=== PATIENT | male | born 1975 | race Caucasian/White ===

== ENCOUNTER 2019-05-11 08:46 | Inpatient (IN) ==
[2019-05-11] MEDS ORDERED: NITROGLYCERIN TOP ONE (09:04)
[2019-05-11] MEDS ORDERED: NS 1,000 ML IV ONE ×2 (09:04→10:06)
[2019-05-11] MEDS ORDERED: ZOFRAN IM ONE (09:04)
[2019-05-11] MEDS ORDERED: ASPIRIN PO ONE (09:04)
--- NOTE | 2019-05-11 09:30 | Diag Imaging Result Doc PS360 ---
EXAM: CHEST-1 VIEW 05/11/2019 HISTORY: chest pain TECHNIQUE: AP upright portable at 0919 COMMENT: The inspiration is less optimal than on 06/15/2018. Otherwise, considering differences in technique, there has been no significant change. IMPRESSION: Stable chest. Electronically signed by Dale Basilio 05/11/2019 9:27 AM
--- NOTE | 2019-05-11 09:35 | EKG Report ---
Test Performed on : 05/11/2019 08:52:29 AM Test Reason : CP Blood Pressure : / mmHG Vent. Rate : 119 BPM Atrial Rate : 119 BPM P-R Int : 116 ms QRS Dur : 082 ms QT Int : 358 ms P-R-T Axes : -01 073 -19 degrees QTc Int : [address] & T wave abnormality, consider inferior ischemia ST & T wave abnormality, consider anterolateral ischemia Abnormal ECG When compared with ECG of 15-JUN-2018 19:49, Vent. rate has increased BY [address] more depressed in Anterior leads T wave inversion now evident in Inferior leads T wave inversion now evident in Anterolateral leads Unconfirmed Result
[2019-05-11 09:50] LABS: BASO# 0.03 X1000 (0.0-0.2); BASO% 0.2 % (0.0-0.8); EOS# 0.02 X1000 (0.0-0.7); EOS% 0.1 % (0.0-10.0); HEMATOCRIT 47.2 % (42.0-52.0); HEMOGLOBIN 16.7 g/dL (14.0-18.0); LYMPH# 1.45 X1000 (1.2-3.4); LYMPH% 7.4 % (20.5-51.1); MCH 33.4 PG (27-31); MCHC 35.4 g/dL (33-37); MCV 94.4 FL (81-99); MONO% 3.1 % (1.7-9.3); MPV 10.4 FL (7.4-10.4); NEUT# 17.37 X1000 (1.4-6.5); NEUT% 89.2 % (42.2-75.2); PLT 239 X1000 (130-400); RDW 16.1 % (11.5-14.5); WBC 19.47 X1000 (4.8-10.8)
[2019-05-11 09:51] LABS: POTASSIUM 2.9 mmol/L (3.5-5.1)
--- NOTE | 2019-05-11 09:51 | PROVIDER DOCUMENTATION ---
HPI-Chest Pain - General Chief Complaint: Chest Pain Stated Complaint: CP,VOMITING Time Seen by Provider: 05/11/19 09:03 Allergies/Adverse Reactions: Patient Allergies Allergy/AdvReac Type Severity Reaction Status Date / Time sulfamethoxazole Allergy Unknown Verified 05/11/19 12:05 [From Bactrim] trimethoprim [From Bactrim] Allergy Unknown Verified 05/11/19 12:05 Home Medications: Home Medication List Medication Instructions Recorded Confirmed Last Taken Type Amlodipine Besylate 5 mg PO DAILY 05/11/19 05/11/19 Unknown History Fenofibrate Nanocrystallized 145 mg PO DAILY 05/11/19 05/11/19 Unknown History [Fenofibrate] Lisinopril 20 mg PO DAILY 05/11/19 05/11/19 Unknown History Metoprolol Tartrate 50 mg PO DAILY 05/11/19 05/11/19 Unknown History - History of Present Illness-CP Nature of Presenting Problem: 44 yr old M, hx of HTN, alcohol abuse and hypertriglyceridemia, presents today with a two day hx of worsening abdominal pain, nausea/vomiting and diarrhea. Pt reports a hx of alcohol abuse, and most recently indulged in alcohol use (liquor of choice is whiskey) this past Friday. Friday morning, he attempted to take a shot, but states that he felt sick to his stomach after that, and did not drink again for the rest of the weekend.The pt notes that he began having general malaise on Friday, with bouts of vomitus, up to 50 times, mostly bile towards the end. The pt also notes diarrhea, as well as abdominal pain, that first started as lumbar back pain, and then spread around to his abdomen. He no jerry generalized abdominal pain. Pt attempted to wait to see his PCP later today, but when his pain intensified, he had his bring him to the ED. No previous similar episodes. Review of Systems - Adult - REVIEW OF SYSTEMS - ADULT Constitutional: reports: no symptoms reported Eyes: reports: no symptoms reported Ears, Nose, Mouth & Throat: reports: no symptoms reported Cardiovascular: reports: chest pain Respiratory: reports: no symptoms reported Gastrointestinal: reports: abdominal pain, diarrhea, nausea, poor appetite, vomiting Genitourinary: reports: no symptoms reported Musculoskeletal: reports: back pain Integumentary: reports: no symptoms reported Neurological: reports: no symptoms reported Psychiatric: reports: no symptoms reported Endocrine: reports: no symptoms reported Past History - Adult - PAST MEDICAL HISTORY-ADULT Review of Records: reports: Nursing Assessment Review, Medications Reviewed Major Childhood Illnesses: reports: denies history Cardiovascular: reports: HTN Respiratory: reports: denies history Gastrointestinal: reports: denies history Musculoskeletal: reports: denies history Neurological: reports: denies history Psychiatric: reports: denies history Endocrine/Immune: reports: denies history - PRIOR SURGERIES/PROCEDURES Surgical/Procedure History: reports: other (Double Aortic Arch) - IMMUNIZATION STATUS Childhood Immunizations: See Nurse Assessment Flu Vaccine: See Nurse Assessment - FAMILY HISTORY Family History: other (father of brain tumor in his 30s) - SOCIAL HISTORY Alcohol Use Frequency: 5-6 times a week Physical Exam-General - PHYSICAL EXAM-ADULT Initial Vital Signs Reviewed: Yes - CONSTITUTIONAL General Appearance: alert, moderate distress - EYES Eyes: PERRL/EOMI - HEAD, EARS, NOSE, MOUTH & THROAT HENMT: normocephalic/atraumatic, moist mucous membranes - NECK Neck: full range of motion - RESPIRATORY Respiratory: lungs clear, normal breath sounds - CARDIOVASCULAR Cardiovascular: regular rate, rhythm - GASTROINTESTINAL (ABDOMEN) Abdominal Exam: non tender, soft, abnormal bowel sounds (hypoactive), guarding, rebound, tenderness - MUSCULOSKELETAL Extremity: no pedal edema - NEUROLOGIC Neurologic: grossly normal, no motor/sensory deficits - PSYCHIATRIC Psych/Mental Status: oriented x 3 - HEART Score HEART Score: History: Slightly Suspicious HEART Score: ECG: Non-Specific Repolarization Disturbance/LBBB/PM HEART Score: Age: 45-65 Years HEART Score: Risk Factors for Atherosclerotic Disease: 1 or 2 Risk Factors HEART Score: Troponin: < or = Normal Limit Total HEART Score:: 3 Progress - PLAN OF CARE/RESULTS Progress/Plan/Lab Results: 11:40AM updates: CT shows acute severe pancreatitis; WBC 19, Mag 1, K 2.9, lipase >400, lactate 3.2. Updated pt and on results. Paged for hospitalist twice; awaiting call back; 2 L NS running so far, will start a 3rd. 12:00PM: spoke with hospitalist, accepted for admission. Zosyn 3.375 gm IV initiated. Result Diagrams: 05/11/19 08:59 05/11/19 08:59 - EKG 1 Time of EKG reading by physician:: 08:53 EKG Read and Signed by:: Alirio Kraft EKG Interpretation (*Must complete 3 of following elements*): Abnormal Rate: 119 Rhythm: sinus tachycardia [place]: normal QRS: normal ST Wave: non-specific ST changes 2 Time of EKG reading by physician:: 11:52 EKG Read and Signed by:: Justo Painting EKG Interpretation (*Must complete 3 of following elements*): Abnormal Rate: 103 Rhythm: sinus tachycardia [place]: normal QRS: normal ST Wave: non-specific ST changes - XRAY 1 XRAY Study: Chest Impression: Normal, See EMR Report - CONSULTS/PCP/HOSPITALIST Notification #1 *Consult/PCP/Hospitalist*: SHANITA Manriquez Time Discussed: 11:50 Consult Disposition: Admit Departure - Departure Date of Disposition Decision: 05/11/19 Time of Disposition Decision: 12:29 DIAGNOSIS: Acute pancreatitis Disposition: ADMITTED INPATIENT 09 Certified Medical Emergency: Emergent Condition: Critical - Critical Care Note This patient required my direct & personal management of CC.: No Attestation - Physician/ STEPHANIE Attestation Patient care was provided by Advanced Practice Provider:: No The physician spent face to face time with patient:: Yes Advanced Practice Provider documentation review:: Supervising physician onsite and consulted in the evaluation and care of this patient. The physician did have a face to face encounter with the patient.
[2019-05-11 09:52] LABS: ALB/GLOB RATIO 1.6; ALBUMIN 4.6 g/dL (3.5-5.0); CALCIUM 8.5 mg/dL (8.8-10.2); CREATININE 1.4 mg/dL (0.7-1.2); TOTAL BILIRUBIN 2.51 mg/dL (0.20-1.00); TOTAL PROTEIN 7.4 g/dL (6.3-8.3)
[2019-05-11] MEDS ORDERED: M.V.I.-12 10 ML, FOLIC ACID 1 MG, MAGNESIUM SULFATE 1 GM, THIAMINE 100 MG in NS 1,000 ML IV ONE (10:00)
[2019-05-11] MEDS ORDERED: ATIVAN IV ONE ×2 (10:02→10:32)
[2019-05-11] MEDS ORDERED: MORPHINE IV ONE (10:04)
--- NOTE | 2019-05-11 10:39 | Diag Imaging Result Doc PS360 ---
CT ABD/PELVIS W/IV CONT ONLY - 05/11/2019 INDICATION: abdominal pain COMPARISON: None FINDINGS: The lung bases are clear and the heart size is normal. There is moderate fatty change of the liver. There is severe inflammatory edema all about the pancreas compatible with acute pancreatitis. There is some fluid in the left anterior pararenal space. No drainable fluid. No bowel obstruction or inflammation. No free air. No hemorrhage or vascular occlusion. Urinary bladder, prostate, and rectum are normal. Bones are intact. IMPRESSION: Severe acute pancreatitis. Fatty change of the liver. This exam was performed using automated exposure control, adjustment of mA or kV according to patient size, and/or use of iterative reconstruction technique Electronically signed by Roly Pollock 05/11/2019 10:36 AM
[2019-05-11] MEDS ORDERED: MAGNESIUM SULFATE 2 GM/S.W.I. 2 GM/50 ML IVPB IV ONE (10:57)
[2019-05-11] MEDS: POTASSIUM CHLORIDE 60 MEQ in NS 500 ML IV SCH ×2 (10:57→17:16)
[2019-05-11] MEDS ORDERED: ZOSYN 3.375 GM in NS 50 ML IV ONE (11:51)
[2019-05-11] MEDS ORDERED: ROBAXIN PO PRN (12:09)
[2019-05-11] MEDS ORDERED: BENTYL PO PRN (12:09)
[2019-05-11] MEDS ORDERED: ATARAX PO PRN (12:09)
[2019-05-11 12:26] LABS: URINE SOURCE CLEAN CATCH
[2019-05-11 12:30] LABS: BILIRUBIN URINE NEGATIVE (NEGATIVE); BLOOD URINE TRACE (NEGATIVE); COLOR YELLOW; GLUCOSE URINE NEGATIVE (NEGATIVE); KETONE URINE NEGATIVE (NEGATIVE); LEUKOCYTES URINE NEGATIVE (NEGATIVE); NITRITE URINE NEGATIVE (NEGATIVE); PROTEIN URINE 100 mg/dL (NEGATIVE); TURBIDITY URINE CLEAR (CLEAR); UROBILINOGEN URINE NORMAL (NORMAL)
--- NOTE | 2019-05-11 12:42 | EKG Report ---
Test Performed on : 05/11/2019 11:50:52 AM Test Reason : REPEAT Blood Pressure : / mmHG Vent. Rate : 103 BPM Atrial Rate : 103 BPM P-R Int : 120 ms QRS Dur : 082 ms QT Int : 376 ms P-R-T Axes : -06 057 -08 degrees QTc Int : [address] & T wave abnormality, consider anterolateral ischemia Abnormal ECG When compared with ECG of 11-MAY-2019 08:52, (Unconfirmed) No significant change was found Unconfirmed Result
[2019-05-11 13:03] LABS: UR EPITHELIAL CELLS >10 /HPF (<10); URINE BACTERIA NEGATIVE /HPF; URINE RBC <10 /HPF (<10)
[2019-05-11] MEDS: PROTONIX IV SCH (13:15)
[2019-05-11] MEDS: LIBRIUM PO SCH ×3 (13:15→18:21)
[2019-05-11] MEDS: NS 1,000 ML IV SCH ×2 (13:15→19:17)
[2019-05-11] MEDS: BENTYL PO SCH ×2 (13:18→21:25)
--- NOTE | 2019-05-11 13:44 | HISTORY AND PHYSICAL ---
CHIEF COMPLAINT: Abdominal pain, nausea, vomiting, diarrhea. HISTORY OF PRESENT ILLNESS: This is a 44-year-old gentleman with a history of alcohol use and abuse, who presented to the emergency room complaining of 3 days of abdominal pain, nausea, vomiting, and diarrhea. He states that this started after having approximately 48 hour binge of alcohol celebrating his birthday. He does have a history of hypertriglyceridemia and chronic alcohol abuse. He states that he started becoming six Friday morning. He attempted to continue drinking, but he was unable secondary to vomiting. He reports up to 50 times of vomiting during these last 4 days. He states that he denies any black or bloody vomitus or stools, but he does state that he has been vomiting bile in the end having dark green secretions. Diarrhea started over the last 72 hours and he denies any black or bloody stools. He denies any prior episodes similar to this. PAST MEDICAL HISTORY: Hypertension, high cholesterol. 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 SOCIAL HISTORY: He drinks daily with whiskey being his drink of choice. His last drink was Friday. He smokes about a pack a day. He denies any illicit drug use. ALLERGIES: Bactrim with unknown reaction. HOME MEDICATIONS: Amlodipine, fenofibrate, gemfibrozil, lisinopril, metoprolol. REVIEW OF SYSTEMS: Discussed with patient with pertinent positives stated in the HPI. He denied any syncope or dizziness, any chest pain or palpitations, black or bloody vomitus or stools, any shortness of breath, cough, fever, chills, any night sweats, any hematuria, dysuria, frequency or urgency. PHYSICAL EXAMINATION: GENERAL: This is a 44-year-old gentleman who is lying in the bed asleep in the emergency room. He does arouse to his name being called. EYES: Pupils are equal, round, react to light. EOMs are intact. Sclerae anicteric. HEENT: Head is normocephalic, atraumatic. Mucous membranes are moist. NECK: Supple. Trachea midline. No JVD. CARDIOVASCULAR: Regular rate and rhythm. S1 and S2 appreciated. EXTREMITIES: He has no lower extremity edema. Calves are nontender bilateral with peripheral pulses palpable x4 extremities. PULMONARY: Breath sounds are clear. No increased work of breathing noted. Chest rises and falls symmetric with respiration. GASTROINTESTINAL: Abdomen is soft. He has generalized tenderness specifically with tenderness increased at the epigastric to left upper quadrant area. Bowel sounds are hypoactive. GENITOURINARY: He has no CVA nor suprapubic tenderness. NEUROLOGIC: He is alert and oriented. SKIN: Warm and dry. LABORATORIES: WBC is 19.4 with hemoglobin 16.7, hematocrit 47.2, and platelets 239,000. Sodium 141, potassium 2.9, BUN 18, creatinine 1.4 with a glucose of 149. Magnesium is 1 with a total bilirubin of 2.5, AST 39, ALT 26, alkaline phosphatase 141. Troponins are negative on multiple occasions. Amylase 215, lipase 461 with lactate of 3.2. Blood alcohol reveals none detected. Blood cultures are pending. CT of the abdomen and pelvis reveals severe acute pancreatitis. There is some fluid in the left anterior perirenal space. No drainable fluid. No bowel obstruction or inflammation. No free air. No hemorrhage or vascular occlusion. Urinary bladder, prostate, and rectum are normal. Bones are intact IMPRESSION: Severe acute pancreatitis and fatty change of the liver. ASSESSMENT AND PLAN: 1. Acute pancreatitis. The patient will be n.p.o., we will continue with IV hydration. 2. Leukocytosis. Likely secondary to pancreatitis, blood cultures have been obtained. We will start Zosyn and further antibiotics will be culture driven. 3. Hypokalemia. replete and trend electrolytes, treat appropriately. 4. Hypomagnesemia. replete and trend labs. Replete appropriately. 5. Elevated liver function tests. trend labs daily. hepatitis profile. 6. Alcohol withdrawal. He was given a banana bag in the emergency room. We will place him on a Librium taper with Bentyl, Atarax, and Robaxin p.r.n. Continue with IV hydration. Ativan IV as needed. 7. Abdominal pain, nausea, vomiting, and diarrhea of course this is secondary to pancreatitis as well as alcohol withdrawal. IV hydration. He will be n.p.o. with the exception of medications as stated above. 8. DVT prophylaxis. We will hold off on any anticoagulation as we are unsure of the presence of varices. We will use SCDs. 9. GI prophylaxis. We will use Protonix IV. Plan discussed with Dr Solis Further treatments pending hospital course. Dictated by KSENIA Murdock for Graham Castellanos MD Addendum: Patient seen and examined by myself. Agree with KSENIA note. It reflects my assessment and plan. Patient is being admitted to hospital for acute pancreatitis most likely due to alcohol abuse. Also there is some electrolyte disbalance noted as well. Will place in NPO, IV fluids and pain medications. Will replenish potassium and keep checking it as well as magnesium and phosphorus in a daily basis. Will monitor him closely. cc: KSENIA Murdock MD [facility]
[2019-05-11] MEDS: ATARAX PO SCH ×2 (14:00→21:25)
[2019-05-11 14:03] LABS: URINE CASTS NONE SEEN; URINE CRYSTALS NONE SEEN; URINE YEAST NONE SEEN
[2019-05-11 17:30] LABS: AGAP 11; ALBUMIN 3.3 g/dL (3.5-5.0); BUN 15 mg/dL (8-22); CHLORIDE 112 mmol/L (98-107); COSMO 284; ESTIMATED GFR > 60; GLUCOSE 92 mg/dL (70-104); PHOSPHORUS 1.2 mg/dL (2.7-4.5); POTASSIUM 3.6 mmol/L (3.5-5.1); SODIUM 142 mmol/L (136-145); TCO2 19 mmol/L (25-35)
[2019-05-11 17:33] LABS: CALCIUM 6.4 mg/dL (8.8-10.2)
[2019-05-11] MEDS ORDERED: CALCIUM GLUCONATE 2 GM in NS 100 ML IV ONE (17:39)
[2019-05-11] MEDS ORDERED: SODIUM PHOSPHATE 20 MMOL in NS 250 ML IV ONE (20:00)
[2019-05-11] MEDS ORDERED: CALCIUM GLUCONATE 1 GM in NS 50 ML IV ONE (20:01)
[2019-05-11] MEDS: ZOFRAN IV PRN (21:19)
[2019-05-11] MEDS: ZOSYN 3.375 GM in NS 50 ML IV SCH (21:22)
[2019-05-11] MEDS: DILAUDID IV PRN (21:26)
[2019-05-12] MEDS: PROTONIX IV SCH ×3 (01:33→23:40)
[2019-05-12] MEDS: ATARAX PO SCH ×4 (01:34→18:23)
[2019-05-12] MEDS: BENTYL PO SCH ×4 (01:34→18:23)
[2019-05-12] MEDS: ZOSYN 3.375 GM in NS 50 ML IV SCH ×4 (01:34→19:31)
[2019-05-12] MEDS: NS 1,000 ML IV SCH ×4 (01:34→21:42)
[2019-05-12] MEDS: DILAUDID IV PRN ×7 (01:35→23:38)
[2019-05-12] MEDS: LIBRIUM PO SCH ×4 (02:49→18:23)
[2019-05-12 07:07] LABS: AGAP 9; ALB/GLOB RATIO 1.1; ALBUMIN 2.9 g/dL (3.5-5.0); ALKALINE PHOSPHATASE 90 U/L (32-122); AMYLASE 131 U/L (20-200); BUN 8 mg/dL (8-22); CALCIUM 7.1 mg/dL (8.8-10.2); CHLORIDE 113 mmol/L (98-107); COSMO 284; CREATININE 0.8 mg/dL (0.7-1.2); ESTIMATED GFR > 60; GLUCOSE 79 mg/dL (70-104); GOT 19 U/L (10-34); GPT 13 U/L (10-44); LIPASE 176 U/L (13-60); MAGNESIUM 1.8 mg/dL (1.5-2.7); PHOSPHORUS 1.8 mg/dL (2.7-4.5); POTASSIUM 3.2 mmol/L (3.5-5.1); SODIUM 144 mmol/L (136-145); TCO2 22 mmol/L (25-35); TOTAL BILIRUBIN 1.56 mg/dL (0.20-1.00); TOTAL PROTEIN 5.5 g/dL (6.3-8.3)
[2019-05-12 07:30] LABS: BASO# 0.03 X1000 (0.0-0.2); BASO% 0.2 % (0.0-0.8); EOS# 0.11 X1000 (0.0-0.7); EOS% 0.9 % (0.0-10.0); HEMATOCRIT 37.3 % (42.0-52.0); IMM GRAN# 0.04 X1000 (0.0-0.04); IMM GRAN% 0.3 % (0.0-0.5); LYMPH# 1.36 X1000 (1.2-3.4); LYMPH% 10.9 % (20.5-51.1); MCH 33.8 PG (27-31); MCHC 34.9 g/dL (33-37); MCV 96.9 FL (81-99); MONO# 0.55 X1000 (0.11-0.59); MONO% 4.4 % (1.7-9.3); MPV 10.5 FL (7.4-10.4); NEUT# 10.39 X1000 (1.4-6.5); NEUT% 83.3 % (42.2-75.2); PLT 148 X1000 (130-400); RBC 3.85 XMIL (4.7-6.1); RDW 15.5 % (11.5-14.5); WBC 12.48 X1000 (4.8-10.8)
[2019-05-12] MEDS ORDERED: KLOR-CON PO ONE (08:02)
[2019-05-12] MEDS ORDERED: CALCIUM GLUCONATE 2 GM in NS 100 ML IV ONE (08:30)
--- NOTE | 2019-05-12 08:52 | PROGRESS NOTE ---
DATE: 05/12/2019 SUBJECTIVE: Patient reports still complaining of some epigastric pain. No nausea or vomiting. No more episodes of diarrhea. OBJECTIVE: Vital Signs: Temperature 98.4 degrees, heart rate 97, respiratory rate 22, blood pressure 135/99. O2 saturation 93% on room air. General: This is a 44-year-old male, lying in bed, in no acute distress. Cardiovascular: S1, S2 heard. No murmurs, gallops, or rubs. Regular rate and rhythm. Respiratory: Clear bilaterally to auscultation. No work of breathing or using accessory muscles. Abdomen: Soft, general tenderness to palpation mostly noted in the epigastric area but there are no signs of peritoneal irritation. Bowel sounds present but hypoactive. No organomegaly noted. Extremities: No clubbing, cyanosis, or edema. Peripheral pulses present in both legs. Neurological: Patient is alert and oriented x3. Moves 4 extremities. LABORATORY DATA: White cell count 12.48, hemoglobin 13.0, hematocrit 37.3, platelets 148,000 with potassium 3.2, normal creatinine. Calcium 7.1 with magnesium 1.8. Phosphorus 1.8. Total bilirubin 1.56. ASSESSMENT AND PLAN: 1. Acute pancreatitis secondary to alcohol consumption. Clinically, this patient feels better although he is still having some abdominal pain. I think today he needs to continue with being on nothing by mouth, except oral medications. We will continue with IV fluids. We will continue with IV pain medications as well. Because of leukocytosis that I think is related to this severe pancreatitis, I think we will continue with antibiotics. The blood cultures so far are still pending. 2. Hypokalemia. Potassium is 3.2 today so we are going to provide 60 mEq of potassium. 3. Hypomagnesemia, that condition is resolved. 4. Hypophosphatemia. Phosphorus is 1.8 so we are going to provide sodium phosphate. We will check potassium tomorrow. 5. Transaminitis most likely related to alcohol consumption. Bilirubin is still is mildly elevated. Hepatitis panel is pending but I think all these abnormalities are related to chronic alcohol consumption. 6. Alcohol withdrawal. That is a potential condition that can happen considering his chronic alcohol use. At this point, we have started him on a Librium taper but unfortunately the patient has refused to take it. I talked with the patient today explaining that he may go into withdrawal and he agreed to start taking this medication. 7. DVT prophylaxis. SCDs. 8. GI prophylaxis. Protonix IV. DISPOSITION: I think this patient is getting slowly better so, we can transfer this patient to the [facility]. cc: Graham Castellanos MD
[2019-05-12] MEDS ORDERED: SODIUM PHOSPHATE 35 MMOL in NS 250 ML IV ONE (09:30)
[2019-05-12] MEDS: SODIUM CHLORIDE 0.9% INJ SCH ×2 (12:31→23:40)
[2019-05-12] MEDS: ATIVAN IV PRN ×2 (17:56→19:34)
[2019-05-13] MEDS: LIBRIUM PO SCH ×4 (00:42→17:51)
[2019-05-13] MEDS: ZOSYN 3.375 GM in NS 50 ML IV SCH ×4 (03:28→20:46)
[2019-05-13] MEDS: ATIVAN IV PRN (03:31)
[2019-05-13] MEDS: NS 1,000 ML IV SCH ×4 (04:28→20:47)
[2019-05-13] MEDS: DILAUDID IV PRN ×2 (05:36→08:52)
[2019-05-13 07:59] LABS: BASO# 0.03 X1000 (0.0-0.2); BASO% 0.2 % (0.0-0.8); EOS# 0.07 X1000 (0.0-0.7); EOS% 0.5 % (0.0-10.0); HEMATOCRIT 35.8 % (42.0-52.0); HEMOGLOBIN 12.1 g/dL (14.0-18.0); IMM GRAN# 0.06 X1000 (0.0-0.04); IMM GRAN% 0.5 % (0.0-0.5); LYMPH# 0.79 X1000 (1.2-3.4); LYMPH% 6.1 % (20.5-51.1); MCH 33.5 PG (27-31); MCHC 33.8 g/dL (33-37); MCV 99.2 FL (81-99); MONO# 1.07 X1000 (0.11-0.59); MONO% 8.3 % (1.7-9.3); MPV 9.7 FL (7.4-10.4); NEUT# 10.93 X1000 (1.4-6.5); NEUT% 84.4 % (42.2-75.2); PLT 152 X1000 (130-400); RBC 3.61 XMIL (4.7-6.1); RDW 15.2 % (11.5-14.5); WBC 12.95 X1000 (4.8-10.8)
[2019-05-13 08:12] LABS: AGAP 13; ALKALINE PHOSPHATASE 121 U/L (32-122); AMYLASE 71 U/L (20-200); BUN 7 mg/dL (8-22); CALCIUM 7.2 mg/dL (8.8-10.2); CHLORIDE 109 mmol/L (98-107); COSMO 279; CREATININE 0.9 mg/dL (0.7-1.2); ESTIMATED GFR > 60; GLUCOSE 60 mg/dL (70-104); GOT 20 U/L (10-34); GPT 9 U/L (10-44); LIPASE 57 U/L (13-60); MAGNESIUM 1.7 mg/dL (1.5-2.7); PHOSPHORUS 1.7 mg/dL (2.7-4.5); POTASSIUM 3.6 mmol/L (3.5-5.1); SODIUM 142 mmol/L (136-145); TCO2 20 mmol/L (25-35); TOTAL BILIRUBIN 1.17 mg/dL (0.20-1.00); TOTAL PROTEIN 6.1 g/dL (6.3-8.3)
[2019-05-13] MEDS ORDERED: CALCIUM GLUCONATE 2 GM in NS 100 ML IV ONE (09:00)
[2019-05-13] MEDS ORDERED: SODIUM PHOSPHATE 40 MMOL in NS 250 ML IV ONE (10:00)
--- NOTE | 2019-05-13 12:06 | PROGRESS NOTE ---
DATE: 05/13/2019 SUBJECTIVE: The patient is sleepy this morning. As per who is at bedside, she is concerned about over sedating him with Dilaudid, and wants to change to a different medication. OBJECTIVE: Vital Signs: Temperature 97.3 degrees, heart rate 100, respiratory rate 23, blood pressure 150/105, and O2 saturation 97% on Venturi mask. General: This is a 44-year-old male lying in bed in no acute distress. Cardiovascular: S1, S2 heard. No murmurs, gallops, or rubs. Regular rate and rhythm. Respiratory: Clear bilaterally to auscultation. No work of breathing or using accessory muscles. Abdomen: Soft. Generalized tenderness to palpation in the abdomen mostly in the epigastric area. No signs of peritoneal irritation. Bowel sounds present but hypoactive. No organomegaly noted. Extremities: No clubbing, cyanosis, or edema. Peripheral pulses are present in both legs. Neurological: Patient is alert and oriented x3. Moves all 4 extremities. LABORATORY DATA: White cell count is 12.95, hemoglobin 12.1, hematocrit 35.8, and platelets 152,000. Phosphorus 1.7. Calcium 7.2. Magnesium 1.7. Total bilirubin 1.17. ASSESSMENT/PLAN: 1. Acute pancreatitis secondary to alcohol consumption. Clinically, this patient reports less abdominal pain even though he is sleepy. I think we can try to start a clear liquid diet for him. The patient is receiving IV fluids in this case at 150 mL/h normal saline. I think we are going to back off and do 75 mL per hour. We are going to change morphine for Dilaudid. We are going to try 2 mg IV q.3 hours. Leukocytosis is related to severe pancreatitis. This is stable in comparing with yesterday. This is almost back to normal. We will continue with the same management. 2. Hypokalemia resolved. 3. Hypomagnesemia resolved. 4. Hyperphosphatemia. We are going to provide 35 millimoles of sodium phosphate. 5. Transaminitis most likely related to alcohol consumption. It continues to improve. We will continue to monitor CMP daily. 6. Alcohol withdrawal. The patient is sometimes receiving his Librium, and sometimes he does not. says that they will leave it to him to decide if he wants to continue taking that medication or not. He has been explained about the risk of alcohol withdrawal. He is also receiving Ativan p.r.n. We will continue to monitor. 7. Deep vein thrombosis prophylaxis on SCD's. 8. Gastrointestinal prophylaxis on Protonix. DISPOSITION: We will continue to monitor this patient closely here in the [facility]. cc: Graham Castellanos MD MTDD
[2019-05-13] MEDS: PROTONIX IV SCH ×2 (12:39→20:46)
[2019-05-13] MEDS: MORPHINE IV PRN ×2 (12:40→15:37)
[2019-05-13] MEDS: ZOFRAN IV PRN ×2 (12:40→18:40)
[2019-05-13] MEDS ORDERED: LASIX IV ONE (13:48)
--- NOTE | 2019-05-13 14:05 | Diag Imaging Result Doc PS360 ---
EXAM: CHEST-PORTABLE 05/13/2019 HISTORY: sob TECHNIQUE: AP portable at 1455 COMMENT: There is increased ill-defined opacity in the lingula compared to 05/11/2019 and there is platelike atelectasis in the mid right lung which was not previously present. The inspiration is suboptimal compared to the previous study. IMPRESSION: Bilateral atelectasis and/or pneumonia. Electronically signed by Dale Basilio 05/13/2019 2:02 PM
[2019-05-13] MEDS ORDERED: OFIRMEV 1000 MG/ISOTONIC SOLN 1,000 MG/100 ML BOTTLE IV PRN (16:43)
[2019-05-13] MEDS: ZYVOX 600 MG/D5W 600 MG/300 ML IVPB IV SCH (17:12)
[2019-05-14] MEDS: LIBRIUM PO SCH ×3 (00:17→13:38)
[2019-05-14] MEDS: ZOSYN 3.375 GM in NS 50 ML IV SCH ×4 (01:31→20:18)
[2019-05-14] MEDS: ZYVOX 600 MG/D5W 600 MG/300 ML IVPB IV SCH ×2 (05:21→16:49)
[2019-05-14] MEDS: ZOFRAN IV PRN ×2 (05:47→19:09)
[2019-05-14 07:58] LABS: BASO# 0.02 X1000 (0.0-0.2); BASO% 0.1 % (0.0-0.8); EOS# 0.08 X1000 (0.0-0.7); EOS% 0.6 % (0.0-10.0); HEMATOCRIT 32.3 % (42.0-52.0); HEMOGLOBIN 11.2 g/dL (14.0-18.0); IMM GRAN# 0.06 X1000 (0.0-0.04); IMM GRAN% 0.4 % (0.0-0.5); LYMPH# 1.06 X1000 (1.2-3.4); LYMPH% 7.7 % (20.5-51.1); MCH 33.5 PG (27-31); MCHC 34.7 g/dL (33-37); MCV 96.7 FL (81-99); MONO# 1.55 X1000 (0.11-0.59); MONO% 11.2 % (1.7-9.3); MPV 10.3 FL (7.4-10.4); NEUT# 11.01 X1000 (1.4-6.5); PLT 149 X1000 (130-400); RBC 3.34 XMIL (4.7-6.1); RDW 15.1 % (11.5-14.5); WBC 13.78 X1000 (4.8-10.8)
[2019-05-14 08:15] LABS: AGAP 11; ALB/GLOB RATIO 0.9; ALBUMIN 2.7 g/dL (3.5-5.0); ALKALINE PHOSPHATASE 161 U/L (32-122); AMYLASE 74 U/L (20-200); BUN 4 mg/dL (8-22); CALCIUM 7.6 mg/dL (8.8-10.2); CHLORIDE 101 mmol/L (98-107); COSMO 272; CREATININE 0.8 mg/dL (0.7-1.2); ESTIMATED GFR > 60; GLUCOSE 116 mg/dL (70-104); GOT 24 U/L (10-34); GPT 11 U/L (10-44); LIPASE 94 U/L (13-60); MAGNESIUM 1.4 mg/dL (1.5-2.7); PHOSPHORUS 1.2 mg/dL (2.7-4.5); POTASSIUM 2.8 mmol/L (3.5-5.1); SODIUM 137 mmol/L (136-145); TCO2 25 mmol/L (25-35); TOTAL BILIRUBIN 1.21 mg/dL (0.20-1.00); TOTAL PROTEIN 5.7 g/dL (6.3-8.3)
[2019-05-14 08:40] LABS: BANDS 2 % (0-1); LYMPHS 6 % (21-51); MONO 9 % (1-9); SEGS 83 % (42-75)
[2019-05-14] MEDS: SODIUM CHLORIDE 0.9% INJ SCH (08:40)
[2019-05-14] MEDS: PROTONIX IV SCH ×2 (08:40→22:19)
[2019-05-14] MEDS ORDERED: POTASSIUM CHLORIDE 60 MEQ in NS 500 ML IV ONE (09:35)
[2019-05-14] MEDS ORDERED: SODIUM PHOSPHATE 40 MMOL in NS 250 ML IV ONE (09:35)
[2019-05-14] MEDS ORDERED: MAGNESIUM SULFATE 2 GM/S.W.I. 2 GM/50 ML IVPB IV ONE (09:37)
[2019-05-14] MEDS: MORPHINE IV PRN ×3 (10:30→23:55)
--- NOTE | 2019-05-14 10:59 | Diag Imaging Result Doc PS360 ---
CT THORAX W/O CONTRAST - 05/14/2019 INDICATION: cough COMPARISON: 05/11/2019 FINDINGS: There are small bilateral pleural effusions. There is trace ascites worsened since prior. There is worsening peripancreatic fluid. There is worsening, significant fluid in the left anterior pararenal space. Lung volumes are severely low. There is a right-sided aortic arch with mirror image branching pattern of the great vessels. No evidence of airway occlusion. Heart size is top normal with no pericardial effusion. There is significant scattered linear atelectasis throughout the lungs. There is probably some hazy interstitial pulmonary edema as well. There are moderate degenerative changes of the spine. No acute or suspicious bony lesion. IMPRESSION: 1. Small bilateral pleural effusions. Worsening hazy interstitial opacities suggesting mild pulmonary edema. Significant linear atelectasis. 2. Worsening ascites and peripancreatic fluid in the upper abdomen. This exam was performed using automated exposure control, adjustment of mA or kV according to patient size, and/or use of iterative reconstruction technique Electronically signed by Roly Pollock 05/14/2019 10:57 AM
[2019-05-14] MEDS ORDERED: LASIX IV SCH (13:30)
[2019-05-14] MEDS: TYLENOL PO PRN (13:38)
--- NOTE | 2019-05-14 14:18 | PROGRESS NOTE ---
DATE: 05/14/2019 SUBJECTIVE: Patient is more awake this morning. Definitely change on IV pain medications has helped him. Mother is at bedside. They report that while patient was trying soup, he experienced some epigastric abdominal pain, so he was not taking anything except water that he is tolerating very well. He reports also some cough. OBJECTIVE: Vital Signs: Temperature 99.5 degrees, heart rate 108, respiratory 17, blood pressure 149/93, O2 saturation 92% on 2 L nasal cannula. General Examination: This is a 44-year-old male, lying in bed in no acute distress. Cardiovascular exam: S1, S2 heard. No murmurs, gallops, or rubs. Regular rate and rhythm. Respiratory exam: Clear bilaterally to auscultation. No work of breathing or using accessory muscles. Abdomen: Soft. Generalized tenderness to palpation mostly located in the epigastric area, but no signs of peritoneal irritation. Bowel sounds present, but hypoactive. No organomegaly noted. Extremities: No clubbing, cyanosis, or edema. Peripheral pulses present in both legs. Neurological exam: Patient is alert and oriented x3. Moves 4 extremities. LABORATORY DATA: White cell count 13.78, hemoglobin 11.2, hematocrit 32.3, platelets 149. BMP remarkable for potassium 2.8, glucose 116, calcium 7.6, phosphorus 1.2 and magnesium 1.4. ASSESSMENT AND PLAN: 1. Acute pancreatitis secondary to alcohol consumption. Clinically, the patient reports still some abdominal pain when he eats, but not when he is just drinking water or not getting anything by mouth. At this point, we decided to try clear liquid diet again, but this patient continues to have abdominal pain. We decided to hold any food until tomorrow. He is receiving morphine 2 mg intravenous every 3 hours, and definitely pain is well controlled and the patient is less sedated. 2. Leukocytosis is still present most likely related to pancreatitis, but because of any lung infection we are going to do a CT of the chest. 3. Possible pneumonia. The patient was complaining of some cough. White cell count persists, elevated despite using Zosyn. Because he was coughing more today, I prefer to go ahead and order a CT of the chest without contrast to have better visualization of the lung anatomy. 4. Electrolyte imbalance. Potassium, magnesium and phosphorus are low, so we are going to replenish all of them and check them tomorrow morning. 5. Transaminitis most likely related to alcohol consumption. Continues to improve. We will continue to monitor comprehensive metabolic panel daily. 6. Alcohol withdrawal. The patient looks to be going into alcohol withdrawal. We are going to continue with Librium. Sometimes he refuses to take it and sometimes he takes it. We will continue to monitor the premature ventricular complexes. 7. Deep vein thrombosis prophylaxis on sequential compression devices. 8. Gastrointestinal prophylaxis on Protonix. cc: Graham Castellanos MD
[2019-05-14] MEDS: LASIX IV SCH ×2 (16:49→18:41)
[2019-05-15] MEDS: ZOSYN 3.375 GM in NS 50 ML IV SCH ×3 (02:02→13:42)
[2019-05-15] MEDS: MORPHINE IV PRN ×4 (04:05→18:01)
[2019-05-15] MEDS: ZYVOX 600 MG/D5W 600 MG/300 ML IVPB IV SCH (04:07)
[2019-05-15] MEDS: LASIX IV SCH (05:55)
[2019-05-15 06:07] LABS: MAGNESIUM 1.8 mg/dL (1.5-2.7); PHOSPHORUS 1.7 mg/dL (2.7-4.5)
[2019-05-15] MEDS: PROTONIX IV SCH (08:20)
[2019-05-15] MEDS: ZOFRAN IV PRN ×3 (08:25→18:01)
[2019-05-15] MEDS: LIDODERM TOP SCH (13:12)
[2019-05-15 13:17] LABS: AGAP 14; BUN 3 mg/dL (8-22); CALCIUM 8.2 mg/dL (8.8-10.2); CHLORIDE 94 mmol/L (98-107); COSMO 273; CREATININE 1.1 mg/dL (0.7-1.2); ESTIMATED GFR > 60; GLUCOSE 113 mg/dL (70-104); POTASSIUM 2.9 mmol/L (3.5-5.1); SODIUM 138 mmol/L (136-145); TCO2 30 mmol/L (25-35)
[2019-05-15] MEDS: KLOR-CON PO SCH ×2 (15:44→17:46)
[2019-05-15] MEDS: POTASSIUM CHLORIDE 20 MEQ/SWI 20 MEQ/100 ML IVPB IV SCH ×2 (15:44→17:45)
[2019-05-15] MEDS: VITAMIN B-1 PO SCH (15:45)
[2019-05-15] MEDS: THERA M PLUS PO SCH (15:45)
[2019-05-15] MEDS: LOVENOX SUBQ SCH (15:45)
--- NOTE | 2019-05-15 16:08 | PROGRESS NOTE ---
DATE: 05/15/2019 INTERVAL HISTORY: He had a temperature of 100.2 degrees, he also had an episode of vomiting when he was lying on his stomach as his mother was giving him a back rub. Since morning he is able to swallow some liquid broth and Jell-O. He still feels a little nauseous and complains of back pain. He states he is a daily drinker but he is going to quit now. I discussed with him about CT scan chest findings. Patient's is at bedside, answered all of their questions. Currently vitals temperature 98.9 degrees, pulse 125, respiratory rate 18, blood pressure 103/73, he is saturating 94% on 2 L nasal cannula. PHYSICAL EXAMINATION: General: Does not appear in any acute distress. Oral cavity is moist. Air entry bilaterally equal. No wheeze or rhonchi. Mild inspiratory crackles bilateral infrascapular region. S1, S2 normal. Appears regular. Tachycardic. No murmur, rub, or gallop. Abdomen: Soft, obese, nontender, hypoactive bowel sounds. No lower extremity edema. He does not have any tremors. He is alert and oriented x3. No pallor, cyanosis, icterus or clubbing. LABS: Suggestive of hypokalemia being repleted. His chloride is 94. Normal kidney function, hypophosphatemia. Microbiology, urine culture and blood culture does not have any growth. Chest CT yesterday had small bilateral pleural effusions, mild pulmonary edema, atelectasis. ASSESSMENT AND PLAN: 1. Acute pancreatitis due to alcohol use. Advance diet to full liquid diet. Stop intravenous antibiotics. The patient was counseled about not drinking alcohol in future. He has mild leukocytosis and mild fever however no obvious signs of necrotizing pancreatitis at the moment. 2. Alcohol abuse and use disorder. Continue chlordiazepoxide taper, intravenous lorazepam as needed, thiamine and multivitamin tablet. 3. Electrolyte disturbance including hypokalemia currently being repleted. I will give him lidocaine patch for back pain and he was counseled about not lying on his stomach. I will also add enoxaparin for DVT prophylaxis. 4. Others, continue to hold home medication for essential hypertension and hypertriglyceridemia at the moment and add back as tolerated. His MELVIN and transaminitis have improved. DISPOSITION: The patient still has some abdominal pain and nausea. My plan is to stop IV antibiotics, IV Lasix today, monitor him for 24 hours to make sure he tolerates diet. Plan of care discussed with him and his at bedside. Their questions have been answered. cc: Ryan Tesfaye MD MTDD
[2019-05-16] MEDS: MORPHINE IV PRN ×2 (00:20→05:11)
[2019-05-16 06:24] LABS: BASO# 0.03 X1000 (0.0-0.2); BASO% 0.2 % (0.0-0.8); EOS% 0.7 % (0.0-10.0); HEMATOCRIT 33.2 % (42.0-52.0); HEMOGLOBIN 11.2 g/dL (14.0-18.0); IMM GRAN# 0.09 X1000 (0.0-0.04); IMM GRAN% 0.6 % (0.0-0.5); LYMPH# 1.17 X1000 (1.2-3.4); LYMPH% 8.3 % (20.5-51.1); MCH 33.1 PG (27-31); MCHC 33.7 g/dL (33-37); MCV 98.2 FL (81-99); MONO# 1.96 X1000 (0.11-0.59); MONO% 13.9 % (1.7-9.3); MPV 10.6 FL (7.4-10.4); NEUT# 10.77 X1000 (1.4-6.5); NEUT% 76.3 % (42.2-75.2); PLT 196 X1000 (130-400); RBC 3.38 XMIL (4.7-6.1); RDW 15.1 % (11.5-14.5); WBC 14.12 X1000 (4.8-10.8)
[2019-05-16 06:34] LABS: AGAP 12; BUN 3 mg/dL (8-22); CALCIUM 8.2 mg/dL (8.8-10.2); CHLORIDE 96 mmol/L (98-107); COSMO 272; CREATININE 0.8 mg/dL (0.7-1.2); ESTIMATED GFR > 60; GLUCOSE 98 mg/dL (70-104); MAGNESIUM 1.8 mg/dL (1.5-2.7); PHOSPHORUS 1.7 mg/dL (2.7-4.5); POTASSIUM 2.8 mmol/L (3.5-5.1); SODIUM 138 mmol/L (136-145); TCO2 30 mmol/L (25-35)
[2019-05-16] MEDS ORDERED: TRICOR PO SCH (09:00)
[2019-05-16] MEDS ORDERED: LOPID PO SCH (09:00)
[2019-05-16] MEDS: KLOR-CON PO SCH ×2 (09:47→12:53)
[2019-05-16] MEDS: LOPRESSOR PO SCH (09:47)
[2019-05-16] MEDS: THERA M PLUS PO SCH (09:48)
[2019-05-16] MEDS: VITAMIN B-1 PO SCH (09:48)
[2019-05-16] MEDS: PROTONIX IV SCH (09:48)
[2019-05-16] MEDS: POTASSIUM CHLORIDE 20 MEQ/SWI 20 MEQ/100 ML IVPB IV SCH ×2 (09:48→11:57)
[2019-05-16] MEDS: LIDODERM TOP SCH (09:49)
[2019-05-16] MEDS ORDERED: NS 250 ML IV ONE (12:25)
[2019-05-16] MEDS: MYCOSTATIN SUSP PO SCH ×3 (12:53→20:44)
--- NOTE | 2019-05-16 13:00 | PROGRESS NOTE ---
DATE: 05/16/2019 INTERVAL HISTORY: No acute events overnight. He has been able to tolerate diet without any difficulty. He has had a good bowel movement, though it was liquidy. He denies any chest pain, shortness of breath, nausea, vomiting, or abdominal pain. We discussed about advancing diet. We discussed about starting him back on his hypertriglyceridemia medications. VITALS: Currently detect he had mild fever with temperature of 100 degrees yesterday. Currently, temperature 99.3 degrees, pulse 108, respiratory rate 18, blood pressure 120/80, saturating 95% on 2 L nasal cannula. PHYSICAL EXAMINATION: General: Does not appear in any acute distress. No pallor, cyanosis, clubbing, or icterus. Oral cavity has oral candidiasis. Air entry bilaterally equal. No wheeze, rhonchi, or crackles. Cardiovascular: S1, S2 normal. Regular. Tachycardic. No murmur, rub, or gallop. Abdomen: Soft, obese, nontender. Active bowel sounds. No lower extremity edema. No tremors. He is alert and oriented x3. He is able to walk in the hallway without any trouble. LABS: Suggestive of mild leukocytosis, normocytic anemia, normal platelet count, persistent hypokalemia which is currently being repleted. Otherwise, normal kidney function. He does have oral candidiasis. No new microbiological data. No new imaging. ASSESSMENT AND PLAN: 1. Acute pancreatitis due to alcohol abuse, status post intravenous fluid resuscitation. Advance diet to a gastrointestinal soft diet. Monitor for signs of necrotizing pancreatitis or infected necrotizing pancreatitis. His fevers are mild at the moment, so I will continue to hold antibiotics. 2. Alcohol abuse. Continue chlordiazepoxide taper, intravenous lorazepam as needed, thiamine, multivitamin tablet. He was counseled about quitting alcohol. Outpatient gastroenterology followup would be provided. 3. His hypokalemia is currently being repleted; continue lidocaine patch for back pain; nystatin for oral candidiasis; enoxaparin for deep venous thrombosis prophylaxis. 4. Essential hypertension. Start patient on metoprolol and add lisinopril and amlodipine as tolerated; start on fenofibrate for hypertriglyceridemia. 5. Acute kidney injury, transaminitis, acute hypoxic respiratory failure have improved. I will wean down oxygen as tolerated. 6. Disposition. I will monitor patient for another 24 hours to see how he tolerates his regular diet and make sure he does not have recurrence of nausea or vomiting, at about which point I will consider discharging him. Plan of care discussed with him and his mother at bedside. All of their questions have been satisfactorily answered. cc: Ryan Tesfaye MD
[2019-05-16] MEDS: LOVENOX SUBQ SCH (14:35)
[2019-05-16] MEDS: TRICOR PO SCH (20:44)
[2019-05-16] MEDS: TYLENOL PO PRN (20:46)
[2019-05-17] MEDS: MORPHINE IV PRN ×2 (07:34→17:23)
[2019-05-17 08:08] LABS: AGAP 10; BUN 4 mg/dL (8-22); CALCIUM 8.6 mg/dL (8.8-10.2); CHLORIDE 96 mmol/L (98-107); COSMO 270; CREATININE 0.8 mg/dL (0.7-1.2); ESTIMATED GFR > 60; GLUCOSE 155 mg/dL (70-104); POTASSIUM 3.1 mmol/L (3.5-5.1); SODIUM 135 mmol/L (136-145); TCO2 29 mmol/L (25-35)
--- NOTE | 2019-05-17 08:19 | PROGRESS NOTE ---
DATE: 05/17/2019 INTERVAL HISTORY: He he had a temperature of 100 degrees. It was low-grade, and he has been tachycardic with heart rate of 115. However, clinically he has been feeling better. He denies any complaints. He denies chest pain, shortness of breath, nausea, vomiting. He has intermittent cough occasionally. Abdomen is soft, and he has had good bowel movement. VITALS: Temperature most recently 100, pulse 115, respiratory rate 14, blood pressure 126/79. PHYSICAL EXAMINATION: General: Not in acute distress. HEENT: Oral cavity is moist. Lungs: Air entry equal bilaterally. No wheeze, rhonchi, or crackles except left infrascapular mild crackles. Heart: S1, S2 normal. Tachycardic. No murmur or gallop. Abdomen: Obese, soft, mildly generalized tender. Extremities: No lower extremity edema. LABS: BMP is pending. ASSESSMENT AND PLAN: 1. Acute pancreatitis due to alcohol abuse. 2. Alcohol abuse with mild withdrawal symptoms. 3. Hypokalemia. 4. Essential hypertension. 5. Acute kidney injury and transaminitis with acute hypoxic respiratory failure. PLAN: I will get CT scan of the abdomen and pelvis to rule out organized walled-off necrosis or peripancreatic abscess considering his persistent spikes of low-grade fever. Depending on it, I will consider keeping him or discharging him or starting him on IV antibiotics. His persistent Fever episodes are concerning. Plan of care discussed with him and his mother. Their questions have been answered. cc: MD RAVI iHnkle
[2019-05-17] MEDS: THERA M PLUS PO SCH (08:43)
[2019-05-17] MEDS: MYCOSTATIN SUSP PO SCH ×4 (08:43→20:00)
[2019-05-17] MEDS: LIDODERM TOP SCH (08:43)
[2019-05-17] MEDS: VITAMIN B-1 PO SCH (08:43)
[2019-05-17] MEDS: PROTONIX IV SCH (08:44)
[2019-05-17] MEDS: SODIUM CHLORIDE 0.9% INJ SCH (08:44)
[2019-05-17] MEDS: TYLENOL PO PRN ×2 (08:44→20:08)
[2019-05-17] MEDS: LOPRESSOR PO SCH (08:45)
--- NOTE | 2019-05-17 08:46 | Diag Imaging Result Doc PS360 ---
EXAM: CT ABD/PELVIS W/IV CONT ONLY INDICATION: Evaluate for walled off pancreatic necrosis/abscess TECHNIQUE: This exam was performed using automated exposure control, adjustment of mA or kV according to patient size, and/or use of iterative reconstruction technique. COMPARISON: 05/11/2019 FINDINGS: There are very small bilateral pleural effusions and there is bibasilar atelectasis. There is stable hepatic steatosis. There is extensive inflammatory stranding surrounding the pancreas consistent with known acute pancreatitis. The inflammation is worsened during the interval and there is more free fluid around the pancreas and tracking into the pelvis on the previous study. Note of this fluid appears loculated, however. There is homogeneous enhancement throughout the pancreatic parenchyma with no evidence of necrosis. No loculated fluid is identified to indicate walled off necrosis/abscess. There is no evidence of portal or splenic vein thrombosis. There is no evidence of splenic artery pseudoaneurysm. There are stable calcifications at the head of the pancreas. This may indicate component of chronic pancreatitis as well. The spleen is mildly prominent measuring up to 14.5 cm in the greatest axial dimension. The right kidney is absent. The left kidney is unremarkable. The adrenal glands are unremarkable. The urinary bladder is unremarkable. There is no evidence of focal bowel wall thickening or bowel obstruction. The remainder of the GI tract is essentially unremarkable. IMPRESSION: 1.Acute pancreatitis with worsened inflammatory changes and an increase in nonloculated free fluid as compared to the previous study. However, there is no evidence of pancreatic necrosis or abscess on this study. 2.Other incidental/nonacute findings detailed above. Electronically signed by Konard Yusuf 05/17/2019 8:43 AM
[2019-05-17] MEDS: KLOR-CON PO SCH ×2 (11:12→15:36)
[2019-05-17] MEDS: POTASSIUM CHLORIDE 20 MEQ/SWI 20 MEQ/100 ML IVPB IV SCH ×2 (11:12→15:36)
[2019-05-17] MEDS: ZOSYN 3.375 GM in NS 50 ML IV SCH ×3 (11:13→22:56)
[2019-05-17] MEDS: LOVENOX SUBQ SCH (15:36)
[2019-05-17] MEDS ORDERED: NS 500 ML IV SCH (16:15)
[2019-05-17] MEDS ORDERED: KLOR-CON PO ONE (17:33)
[2019-05-17] MEDS: TRICOR PO SCH (20:00)
[2019-05-18] MEDS: MORPHINE IV PRN (02:38)
[2019-05-18] MEDS: TYLENOL PO PRN (03:56)
[2019-05-18] MEDS: ZOSYN 3.375 GM in NS 50 ML IV SCH ×2 (04:06→09:35)
[2019-05-18 05:55] LABS: BASO# 0.04 X1000 (0.0-0.2); BASO% 0.2 % (0.0-0.8); EOS# 0.11 X1000 (0.0-0.7); EOS% 0.7 % (0.0-10.0); HEMATOCRIT 30.6 % (42.0-52.0); HEMOGLOBIN 10.2 g/dL (14.0-18.0); IMM GRAN# 0.17 X1000 (0.0-0.04); LYMPH# 1.05 X1000 (1.2-3.4); LYMPH% 6.3 % (20.5-51.1); MCH 33.3 PG (27-31); MCHC 33.3 g/dL (33-37); MONO% 10.7 % (1.7-9.3); MPV 10.7 FL (7.4-10.4); NEUT# 13.63 X1000 (1.4-6.5); NEUT% 81.1 % (42.2-75.2); PLT 264 X1000 (130-400); RBC 3.06 XMIL (4.7-6.1); RDW 15.4 % (11.5-14.5)
[2019-05-18 06:15] LABS: AGAP 12; BUN 5 mg/dL (8-22); CALCIUM 8.8 mg/dL (8.8-10.2); CHLORIDE 102 mmol/L (98-107); COSMO 277; CREATININE 0.8 mg/dL (0.7-1.2); ESTIMATED GFR > 60; GLUCOSE 99 mg/dL (70-104); MAGNESIUM 1.8 mg/dL (1.5-2.7); POTASSIUM 3.9 mmol/L (3.5-5.1); SODIUM 140 mmol/L (136-145); TCO2 26 mmol/L (25-35)
[2019-05-18] MEDS ORDERED: NS IV ONE (07:05)
[2019-05-18] MEDS ORDERED: POTASSIUM PHOSPHATE IV ONE (07:05)
[2019-05-18] MEDS: SODIUM CHLORIDE 0.9% INJ SCH (09:34)
[2019-05-18] MEDS: PROTONIX IV SCH (09:34)
[2019-05-18] MEDS: MYCOSTATIN SUSP PO SCH (09:34)
[2019-05-18] MEDS: LIDODERM TOP SCH (09:34)
[2019-05-18] MEDS: VITAMIN B-1 PO SCH (09:35)
[2019-05-18] MEDS: THERA M PLUS PO SCH (09:35)
[2019-05-18] MEDS: LOPRESSOR PO SCH (09:35)
[2019-05-18 11:19] VITALS: BP 126/70
--- NOTE | 2019-05-18 12:55 | INFECTIOUS DISEASE CONSULT REP ---
DATE: 05/18/2019 CONCLUSION: I have been asked to see the patient because of fever. I think the patient's fever is due to his acute pancreatitis, which on CT scan has worsened inflammatory changes. RECOMMENDATIONS: I agree with treating the patient with Zosyn. DISCUSSION: The patient was admitted to the hospital approximately 12 days ago. He had abdominal pain, and he did have some chest pain also. His pain is gone from the chest, and his abdominal pain is much improved. Last night, his temperature went up to [address] scan shows acute pancreatitis with worsened inflammatory changes. The patient's CBC shows a white count of 16,800, hemoglobin 10.2, and platelet count 264,000. Creatinine is 0.8. GFR is greater than 60. Alkaline phosphatase is 161. PAST MEDICAL HISTORY/REVIEW OF SYSTEMS: Eyes and Ears: He does not have any trouble hearing or seeing. Neck: No stiffness. Cardiac: The patient did initially have some chest pain, but that has cleared, and he is not having any palpitations. GI: See present illness. : No dysuria or flank pain. Respiratory: No cough or shortness of breath. Bones/Joints/Muscles: No swollen joints or muscle aches. Neurologic: No seizures. No loss of motor or sensory function. Integument: The patient has developed some white spots on his head. 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 MEDICAL DISEASES: Positive for hypertension, hyperlipidemia, hypertriglyceridemia. The patient also appears to be an alcoholic. INFECTIOUS DISEASE HISTORY: Negative for pneumonia and UTI. FAMILY HISTORY: Positive for diabetes mellitus, aortic dissection, and cancer. SOCIAL HISTORY: [place] He smokes cigarettes, and drinks alcoholic beverages. 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 He has cats for pets. He is and has children. ALLERGIES: He had an adverse reaction to sulfa manifested by a drop in his blood pressure. The chart lists an adverse reaction to Septra as mentioned above. HOME MEDICATIONS: Include amlodipine, fenofibrate, gemfibrozil, lisinopril, metoprolol, and Zofran. PHYSICAL EXAMINATION: Vital Signs: Earlier, the temperature was 102 degrees, now it is 98.6, pulse 91, respirations 18, blood pressure 122/81. General: This is a lethargic, middle-aged male. He is in no acute distress. HEENT: He can hear my spoken words and see near objects. He does not have any white patches in his mouth. He does have some white spots on his scalp. Neck: No meningismus. Lungs: Clear to auscultation. Cardiovascular: Heart rate is regular. Abdomen: Soft and nontender. Bowel sounds are present. Neurologic: The patient is lethargic. He can move his extremities. There is no tremor. His sensation is intact to touch. His memory about his medical history was difficult for me to estimate how good it is. His answered most of the questions about his medical problems. Thank you for the consult. cc: Power Blood MD
--- NOTE | 2019-05-18 13:28 | INFECTIOUS DISEASE CONSULT REP ---
DATE: 05/18/2019 ADDENDUM: To the consult I dictated earlier on Lul Godinez. The patient and his said that they were leaving today, and they would not stay to get IV Zosyn overnight. I told them I thought it would be best to do that and hopefully it would bring down his fever and then if it did stay down, then I would send him home on p.o. Augmentin and ciprofloxacin. The patient's insisted that they would not do that and they were going to leave now. I had told the patient that if they did leave now, we would write them for a prescription for Augmentin and Cipro, but that I did not think it would was be as good as staying overnight and getting IV Zosyn. They did go today and a prescription for Augmentin and Cipro was written for them. I have requested to have the patient come back to my office in 10 days. cc: Power Blood MD
--- NOTE | 2019-05-18 15:56 | DISCHARGE SUMMARY ---
ADMISSION DATE: 05/11/2019 DISCHARGE DATE: 05/18/2019 DISCHARGE DISPOSITION: Home against medical advice. DISCHARGE CONDITION: The patient is hemodynamically stable except episodes of fever, the latest one being in the morning time 100.1. Tachycardia with heart rate 100 per minute. He is eating okay. He denies any nausea, vomiting. DISCHARGE DIAGNOSES: 1. Acute pancreatitis due to alcohol use. 2. Hypokalemia. 3. Hypomagnesemia and hypophosphatemia. 4. Transaminitis. 5. Mild alcohol withdrawal. 6. Acute kidney injury OTHER DIAGNOSES: 1. Alcohol use disorder. 2. Essential hypertension. 3. Hyperlipidemia/hypertriglyceridemia. 4. 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 5. Alcohol abuse. 6. Tobacco abuse. DISCHARGE MEDICATIONS: 1. Augmentin 875 mg 1 tablet twice daily for 10 days. 2. Ciprofloxacin 500 mg 1 tablet twice daily for 10 days. 3. Amlodipine 5 mg daily. 4. Fenofibrate 145 mg daily. 5. Lisinopril 20 mg daily. 6. Metoprolol tartrate 50 mg daily. 7. Ondansetron 8 mg every 8 hours as needed for nausea and vomiting. CONSULTATIONS DURING HOSPITAL ADMISSION: Infectious Disease, Dr. Blood. VITALS: At the time of discharge, temperature 99.2 degrees, pulse 100, respiratory rate 18, blood pressure 126/78, saturation 99% on 2 L nasal cannula. PHYSICAL EXAMINATION: General: He appears agitated for being in the hospital, not in any acute distress. HEENT: Oral cavity is moist. Lungs: Air entry bilaterally equal. No wheeze or rhonchi. Heart: S1, S2 normal. No murmur or gallop. Abdomen: Soft, nontender. Extremities: No lower extremity edema. He denies any nausea, vomiting, chest pain, shortness of breath, abdominal pain. He had a bowel movement. LABS: At the time of admission and discharge. On admission his WBC was 19,000; at the time of discharge, it is 16,000. His hemoglobin is 10.2, platelet 264,000. At discharge, his sodium is 140, potassium 3.9, chloride 102. His phosphate is 1, which is currently being repleted. His magnesium is 1.2. SIGNIFICANT MICRO DURING HOSPITAL ADMISSION: Blood culture and urine culture drawn on May 11 did not have any growth. SIGNIFICANT IMAGING DURING HOSPITAL ADMISSION: Abdomen, pelvis CT had severe acute pancreatitis and fatty changes of the liver on May 11. Chest CT on May 14 had small bilateral pleural effusions, worsening of his interstitial opacities suggesting mild pulmonary edema, significantly atelectasis, worsening ascites, and peripancreatic fluid in the upper. Abdomen, pelvis CT on May 17 had acute pancreatitis with worsened inflammatory changes and an increase in the non-loculated free fluid as compared to the previous study. However, there was no evidence of pancreatic necrosis or abscess on that study. HOSPITAL COURSE SUMMARY: Mr. Godinez is 44-year-old man with past medical history of alcohol abuse, who recently had his birthday, and on his birthday, he went on to have binge drinking of about 48 hours. After that, he started feeling weak. He attempted to continue drinking, but he started to have vomiting. He vomited about 50 times during 4 day period before he presented to the emergency room. In the emergency room, he underwent CT scan abdomen which had severe pancreatitis, though his lipase and amylase were normal. So the hospitalist team was consulted for further management. He was also found to have leukocytosis and documented temperature of 99.9 degrees, so the hospitalist team had started him on intravenous fluids and intravenous antibiotics. Later intravenous antibiotics were discontinued. During hospital course, the patient clinically improved. His nausea and vomiting had subsided, and he was able to tolerate diet well without any difficulty. He was also able to ambulate, and he had a bowel movement. However, he kept on having fever spikes for which CT scan of the chest, abdomen, pelvis was performed. After intravenous fluids, he also had developed shortness of breath requiring nasal cannula for his acute hypoxic respiratory failure, which was thought to be related to intravenous fluids as evidenced on CT scan of bilateral pleural effusion. His fluids were stopped, and he was given Lasix following which his respiratory status improved. However, considering his persistent fever, CT scan of the abdomen and pelvis was performed which suggested worsening peripancreatic fluid without any loculation or abscess. The antibiotics which were discontinued after 1st 3 days were reinstituted, and the plan was to give intravenous antibiotics until his fever resolves. However, patient was irritated to be in the hospital and wanted to leave against medical advice. At the time of discharge, he was explained to about the risks associated with leaving against medical advice. I extensively educated him about peripancreatic abscess, pancreatic necrosis, provided information, and will provide him oral antibiotic course. He was strongly recommended to see his regular doctor outpatient. More than 30 minutes were spent in discharging the patient. cc: Ryan Tesfaye MD MTDXuan
== END 2019-05-18 12:30 | disposition left against medical advice (07) | DRG 438 ==
LOC: ED 08:46 → ICU 08:47 → SUATTDRO 08:47 → 2N 05-13 08:27
PROVIDERS: ATTEND Internal Medicine